=== PATIENT | male | born 1950 | race Caucasian/White ===

== ENCOUNTER → 2016-09-18 | Outpatient (CLI) | payer BC ==
[~2016-09-18] MED LIST: ASPCH81X PO; ATEN-173 PO; EZET10TA63 PO; FAMO20TA9 PO; LPT40 PO; LSN40 PO; NIAC500T11 PO; OMEG1CAP84 PO
== END | disposition home or self-care (01) ==
LOC: C.LABPBG 12:59
PROVIDERS: ATTEND Neuromusculoskeletal Medicine & OMM
DX: C61 Malignant neoplasm of prostate (principal); N52.9 Male erectile dysfunction, unspecified

== ENCOUNTER → 2017-03-10 | Outpatient (CLI) | payer BC ==
[2017-03-10 17:58] LABS: BLOOD UREA NITROGEN 19 mg/dl (7-18); CREATININE 0.97 mg/dl (0.60-1.40)
== END | disposition home or self-care (01) ==
LOC: C.LABPBG 10:29
PROVIDERS: ATTEND Ophthalmology
DX: Z01.818 Encounter for other preprocedural examination (principal)

== ENCOUNTER → 2017-04-21 | Outpatient (CLI) | payer BC ==
--- NOTE | 2017-04-22 05:53 | PAP/PSG TECHNICIAN REPORT ---
[facility] Lehr Cutter Polysomnogram Report Study name: None Report date: 04/22/2017 Study date: 04/21/2017 Referring Physician: DR. PALMER Name: WANDA AVILA Interpreting Physician: Paddy Upton M.D. Date of : 1950 Lehr Cutter: Jacky Wellington RPS. Sex: Male Age: 66 StudyType: PSG PAP Weight: 269 lbs Height: 66 years, Height 6' 0" BMI: 36.48 Medications: NONE LISTED Patient History PATIENT HAS HISTORY OF SNORING, FATIGUE AND DAYTIME SLEEPINESS. HE HAD A HOME SLEEP STUDY DONE AND WAS POSITIVE FOR LAKISHA WITH AN AHI OF 16. HE HIS HERE TODAY FOR A CPAP TITRATION. ESS = 11 RM 6 Parameters Monitored NPSG: E1-M2, E2-M1, Fp1-M2, Fp2-M1, F3-M2, F4-M2, F4-M1, C3-M2, C4-M2, C4-M1, O1-M2, O2-M2, O2-M1, T3-M2, T4-M1, P3-M2, P4-M1, CHIN1, CHIN2, HR, EKG, Legs, PFLOW, SNOR, FLOW, CFLOW, Tidal Volume, THOR, ABDO, SpO2, PLTH, CPRESS, ETCO2 Wave, ETCO2, pH Sleep Architecture Sleep Stages Time at Lights Off 9:30:38 PM STAGES Time (min.) TST (%) Time at Lights On 5:34:08 AM Wake 104.5 -- Total Recording Time (TRT) 484.00 min. N1 21.0 6 Total Sleep Period (TSP) 472.5 min. N2 246.5 65 Total Sleep Time (TST) 379.0min. N3 48.0 13 Awake Time 105.0 min. REM 63.5 17 Wake after Sleep Onset 94.0 min. Sleep Efficiency (SE) 78 % Sleep Onset Latency (SANDRITA) 10.5 min. Number of Stage 1 Shifts None Awakenings 24 Stage Changes 97 Number of REM periods 3 REM 63.5 17 REM Latency 189.5 min. NREM 315.5 83 Body Position Analysis Supine Right Left Side Prone Vertical Total Sleep Time (min.) 352.6 43.7 80.5 124.17 0.0 0.0 Total Sleep Time (%) 67% 12% 21% 33 0% N/A% Total Sleep Time REM (min.) 53.5 0.0 10.0 None 0.0 0.0 Total Sleep Time NREM (min.) 201.3 43.7 70.5 None 0.0 0.0 Intermittent Wake (min.) 97.8 0.9 5.8 None 0.0 0.0 Total Sleep Period (%) 72% None None None None None Arousals Myoclonus (PLM) * Events Count Index Events Count Index Spontaneous 37 6 Events Awake (PLMW) 53 30.4 Respiratory 0 0.0 Events Asleep w/ Arousal (PLMA) 14 2.2 PLM 12 2 Events Asleep w/o Arousal (PLMS) 350 55.4 Snoring 2 0 Total Asleep 364 57.6 Total 51 8 Total 417 52 Respiratory Analysis * CA OA MA CH H RERA Total Count 0 0 0 0 21 0 21 Index 0.0 0.0 0.0 0 3.3 0 3.3 Mean Duration 0.0 0.0 0.0 0.00 18.8 0.0 18.8 Longest Duration 0.0 0.0 0.0 0.00 0.0 0.0 34.3 Respiratory Event Summary Total Supine ~Supine Right Left Prone REM NREM Apneas Count 0 0 0 0 0 N/A 0 0 Index 0.0 0 0 0.0 0.0 N/A 0 0 Hypopneas (4% Desat) Count 21 16 5 1 4 N/A 16 5 Index 3.3 3.8 2 1.4 3.0 N/A 15.1 1.0 Apneas & All Hypopneas Count 21 16 5 1 4 N/A 16 5 Index 3.3 4 2 1 3 N/A 15.1 1.0 Respiratory Events (Quality Inspector+All Hyp+RERA) Count 21 16 5 1 4 N/A 16 5 Index 3.3 4 2 1.4 3.0 N/A 15.1 1.0 Respiratory Related Arousal Count 0 16 0 0 0 N/A 0 0 Index 0.0 0 0 0 0 N/A 0 0 Snoring Analysis Supine Right Left Prone REM NREM Total Snore duration 7.3 min Snores count 175 183 50 N/A 121 287 408 Snore mean duration 1.1 Sec Snores index 41 251 37 N/A 114.3 54.6 64.6 TST with snoring (%) 1.9% Desaturation Event Summary: Minimum %SpO2 Event Count Mean/Min/Max Duration(sec.) Desaturation Index % Time In Bed > 90 22 33.4 / 10.5 / 68.4 3.8 73.4 86 - 90 11 23.2 / 9.3 / 37.2 5.5 25.2 81 - 85 3 22.7 / 12.0 / 36.5 29.7 1.3 76 - 80 1 12.0 / 12.0 / 12.0 113.4 0.1 71 - 75 0 N/A 0.0 0.0 66 - 70 0 N/A 0.0 0.0 61 - 65 0 N/A 0.0 0.0 56 - 60 0 N/A 0.0 0.0 51 - 55 0 N/A 0.0 0.0 < 50 0 N/A 0.0 0.0 Total REM NREM Awake <50% 0.0 min. 0.0 min. 0.0 min. 0.0 min. 51 - 60% 0.0 min. 0.0 min. 0.0 min. 0.0 min. 61 - 70% 0.0 min. 0.0 min. 0.0 min. 0.0 min. 71 - 80% 0.5 min. 0.3 min. 0.0 min. 0.2 min. 81 - 90% 125.8 min. 39.4 min. 79.0 min. 7.4 min. 91 - 100% 347.8 min. 23.8 min. 234.6 min. 89.5 min. Average 91 89 91 93 Minimum SpO2 72 77 88 72 Desaturation Event Index 3.7 17.0 1.3 2.9 # Desat. Events below 89% 20 14 4 2 Time(%) with Saturation below 89% 5.2 4.8 0.2 0.2 Time(min.) with Saturation below 89% 24.8 22.9 1.2 0.7 Time (mins) REM (mins) NREM (mins) % of TST SpO2 Below 90% 22 16 N6 10.5 SpO2 Below 88% 10 0 0 4 Heart Rate Analysis Min (bpm) Max (bpm) Average (bpm) Awake 40 196 62 NREM 48 127 56 REM 47 67 56 Overall 47 127 56 Supplemental O2 Values Minimum O2 level: None Value Start Time End Time Lehr Cutter Comments Mr. Avila slept in the right, left and supine positions. No cardiac arrhythmia noted. Leg movements noted. No bruxism noted. CPAP was initiated at +4 CMH2O and up-titrated to an optimal level of +9 CMH2O, which nearly eliminated all respiratory events and snoring. A Resmed mirage fx nasal mask was used during titration Mr. Avila awoke to use the restroom 1 time during the night. Mr. Avila stated I did not sleep as well as I do when I am in my own bed. The final report will be interpreted and signed by a sleep physician. The completed physician report will then be placed in the patient medical record. Therapy Event: Therapy (cm H20) 4 6 8 9 Total Time at Pressure (min.) 213.3 178.3 62.1 29.7 TST at Pressure (min.) 169.3 125.8 58.1 25.7 # Periods 1 1 1 1 Sleep Onset (min.) 10.5 0.0 0.0 0.0 REM Onset (min.) 200.0 0.0 0.0 0.0 Sleep Efficiency % 79 70 93 86 Wakefulness (%) 20.6 29.4 6.4 13.4 Wakefulness (min.) 44.0 52.5 4.0 4.0 NREM 1 (%) 3.8 4.5 3.2 10.1 NREM 1 (min.) 8.0 8.0 2.0 3.0 NREM 2 (%) 53.7 48.5 40.2 68.9 NREM 2 (min.) 114.5 86.5 25.0 20.5 NREM 3 (%) 15.7 0.0 23.3 0.0 NREM 3 (min.) 33.5 0.0 14.5 0.0 REM (%) 6.2 17.6 26.8 7.5 REM (min.) 13.3 31.3 16.6 2.2 # Arousals 25 13 7 6 Arousal Index 8.9 6.2 7.2 14.0 # Snore 347 45 5 11 Snore Index 123.0 21.5 5.2 25.6 AHI 2.1 2.4 9.3 2.3 AHI Supine 2.4 2.4 40.6 2.8 AHI Non-Supine 1.7 N/A 3.7 0.0 NREM AHI 1.2 0.6 0.0 2.6 REM AHI 13.5 7.7 32.5 0.0 RDI 2.1 2.4 9.3 2.3 # Obstructive 0 0 0 0 # Central Ap 0 0 0 0 # Mixed 0 0 0 0 # Hypopneas 6 5 9 1 RERAS 0 0 0 0 Total Respiratory Events 6 5 9 1 Time Below SpO2 89.00% (min.) 13.1 8.0 2.9 0.0 Mean NREM SpO2 (%) 91 91 91 92 Mean REM SpO2 (%) 86 90 91 94 Mean Sleep SpO2 (%) 91 91 91 93 Min NREM SpO2 (%) 89 88 89 90 Min REM SpO2 (%) 81 77 83 92 Position Supine (min.) 98.3 125.8 8.9 21.8 Position Non-supine (min.) 71.0 0.0 49.3 3.9 LM Index Sleep 64.5 54.4 66.1 9.3 LM Index NREM 70.0 71.1 85.3 10.2 LM Index REM 0.0 3.8 18.0 0.0 Mean Heart Rate (bpm) 58 55 53 53 Min Heart Rate (bpm) 51 48 47 49
--- NOTE | 2017-04-24 17:58 | POLYSOMNOGRAPH REPORT ---
CLINICAL DATA: 66-year-old male with BMI of 36.[address] Connell for a CPAP titration study. He had a home sleep apnea test which showed moderate LAKISHA with an AHI of 16. SLEEP ARCHITECTURE: Total sleep period was 472.5 minutes. Total sleep time was 379 minutes divided between 315.5 minutes of non-REM sleep and 62.5 minutes of REM sleep. Sleep onset latency was 10.5 minutes. REM latency was 189.5 minutes. Sleep efficiency was 78%. Wake after sleep onset was 94 minutes. Sleep consisted of stage N1 6%, stage N2 65%, stage N3 13%, and REM 17%. AROUSAL DATA: 51 arousals were recorded for an index of 8 per hour. PLM DATA: Significantly elevated limb movements during sleep were noted. There were 364 limb movements during sleep noted for an index of 57.6 per hour with arousal index of 3.2 per hour. RESPIRATORY DATA: The AHI was 3.3. There were 21 hypopneic episodes with the mean duration of 18.8 seconds. OXIMETRY DATA: Nocturnal hypoxemia was seen. Oxygen lana was 77% during REM. The mean saturation was 91%. Time below 88% was 10 minutes. EKG: Heart rates ranged from 47 to 127 beats per minute. No arrhythmias were noted. HISTOLOGICAL ILLUSTRATOR'S COMMENTS AND TREATMENT SUMMARY: The patient slept in the right, left, and supine position. A ResMed Mirage FX nasal mask was used. CPAP was started and titrated up his final pressure setting of 9 cm of water pressure. At his final pressure setting, he slept for 25.7 minutes with an AHI of 2.3. IMPRESSION: Moderate sleep apnea/hypopnea corrected with CPAP 9 cm of water pressure ResMed Mirage FX nasal mask. RECOMMENDATIONS: The patient should be started on the above noted treatment regimen and seen back in followup within 90 days to document efficacy and compliance. KATHERIN
== END | disposition home or self-care (01) ==
LOC: C.NEUR 21:00
PROVIDERS: ATTEND Family Medicine
DX: G47.30 Sleep apnea, unspecified (principal)

== ENCOUNTER → 2017-06-30 | Outpatient (CLI) | payer BC ==
[~2017-06-30] VITALS: Ht 182.9 cm; Wt 274.3 kg
[2017-06-30 15:39] VITALS: BP 155/71; PULSE 71; Ht 182.9 cm; Wt 274.3 kg
== END | disposition home or self-care (01) ==
LOC: C.NEUR 14:48
PROVIDERS: ATTEND Internal Medicine Pulmonary Disease
DX: G47.33 Obstructive sleep apnea (adult) (pediatric) (principal); G47.34 Idiopathic sleep related nonobstructive alveolar hypoventilation; H47.012 Ischemic optic neuropathy, left eye

== ENCOUNTER 2018-09-10 07:15 | Inpatient (IN) ==
--- NOTE | 2018-08-09 15:15 | PAT Medication Instructions ---
Medication Instructions Date of Service August 09, 2018 Home Medications Vitamin D 1 tab PO QPM aspirin [Aspir-81] 81 mg PO QAM atenolol 25 mg PO QAM atorvastatin 40 mg PO QAM famotidine 20 mg PO HS lisinopril-hydrochlorothiazide 1 tab PO BID niacin 500 mg PO BID omega 0-bxi-vbb-fish oil [Fish Oil] 1 cap PO BID vitamins A,C,F-ghfi-rzhgha 1 tab PO BID STOP taking 2 weeks before surgery (or as soon as possible if surgery is within 2 weeks) omega 3-vzj-soy-fish oil [Fish Oil] 1 cap PO BID Preservision AREDS vitamins A,C,G-ytpv-kjagjp 1 tab PO BID STOP taking 24 hours before surgery niacin 500 mg PO BID DO NOT take the morning of surgery lisinopril-hydrochlorothiazide 1 tab PO BID Take morning of surgery With a small sip of water, OTHERWISE NOTHING TO EAT OR DRINK AFTER MIDNIGHT: atenolol 25 mg PO QAM atorvastatin 40 mg PO QAM Take evening before surgery Vitamin D 1 tab PO QPM famotidine 20 mg PO HS lisinopril-hydrochlorothiazide 1 tab PO BID Other Notes If you have any questions please call us at [phone] or [phone] or [phone] or [phone]
--- NOTE | 2018-08-10 10:37 | Anesthesiology Consultation ---
Date of Service August 10, 2018 Assessment & Plan (1) Encounter for pre-operative examination: - Preop EKG reviewed by cardio; received response: 08/17/18: "Okay to clear." - Check BSG AM DOS *Okay to continue ASA perioperatively per surgeon* Chart Review Chart Review: Acceptable Risk for Surgery and Patient seen in Pre Admission Testing Teaching & Discussion Pre-Anesthesia Teaching/Discussion Notes: Instructed NPO after midnight before surgery,except medications with 15 cc of water. Medication instructions provided according to the PAT guidelines. History Surgery Operation Date: 09/10/18 10:40 Proposed Procedures p Left Total Knee Replacement - Leland Gibbs, Height/Weight Height: 6 ft Weight: 119.4 kg Allergies Allergy/AdvReac Type Severity Reaction Status Date / Time No Known Allergies Allergy Unknown ` Verified 08/03/18 08:38 Medications Home Medications Medication Instructions Recorded Confirmed Last Taken Vitamin D 1 tab PO QPM 08/03/18 08/03/18 Unknown aspirin [Aspir-81] 81 mg PO QAM 08/03/18 08/03/18 Unknown atenolol 25 mg PO QAM 08/03/18 08/03/18 Unknown atorvastatin 40 mg PO QAM 08/03/18 08/03/18 Unknown famotidine 20 mg PO HS 08/03/18 08/03/18 Unknown lisinopril-hydrochlorothiazide 1 tab PO BID 08/03/18 08/03/18 Unknown niacin 500 mg PO BID 08/03/18 08/03/18 Unknown omega 9-bcd-poz-fish oil [Fish Oil] 1 cap PO BID 08/03/18 08/03/18 Unknown vitamins A,C,H-owlt-hjabpa 1 tab PO BID 08/03/18 08/03/18 Unknown [PreserVision AREDS] Past Medical History Medical History CAD (coronary artery disease) NON-OBSTRUCTIVE Bradycardia CHRONIC; ASYMPTOMATIC ON BETA FARSHAD Cancer PROSTATE S/P PROSTECTOMY; BCC S/P SCALP EXCISION Carotid artery disease "STABLE" PER CARDIO Chronic back pain GERD (gastroesophageal reflux disease) Hyperlipidemia Hypertension Obesity Osteoarthritis Sleep apnea CPAP Exercise / Class Metabolic Activity II 4-5 Yardwork/Stairs/Walk up hill Past Family History Family History Father Family history of diabetes mellitus Family history of esophageal cancer Son Family history of esophageal cancer Past Surgical History Surgical History H/O prostatectomy History of cardiac cath 10+ YEARS AGO= NO STENTS History of partial thyroidectomy HX BENIGN NODULE History of total knee replacement RIGHT Past Anesthesia History No Hx of Anesthesia Complications and No Family Hx of Anesthesia Complications History of PONV No Hx of PONV and Hx of Motion Sickness Social History Smoking Status: Former smoker Do You Dip or Chew Tobacco: No Smoking End Date: QUIT 35 YEARS AGO Hx Alcohol Use: Yes Alcohol type: beer alcohol intake frequency: a few times a month Hx Substance Use: No substance use type: does not use Review of Systems Patient denies chest pain, shortness of breath, dyspnea on exertion, cough, wheezing, palpitations. Physical Exam Vital Signs VITALS BP 128/82 P 50 TEMP 98.4 SP02 97%RA RESP 16 PHYSICAL Full neck and c-spine range of motion. Full TMJ range of motion. TMD 3 finger breaths Mallampati Score 2 Dentition: several missing sides/molars Lungs: clear throughout to auscultation Cardiac: regular rate and rhythm, no murmurs noted Spine: normal Carotid arteries: negative bruit Extremities: no edema Thick neck Testing Electrocardiogram Date: 08/10/[address] elevation, consider early repolarization, pericarditis, or injury. No significant change compared to 04/30/15 per cardio [patient denies cardiopulmonary complaints/limitations at PAT visit 08/10/18]. Chest X-Ray Date: 08/10/18 Findings: + NAD Echocardiogram Date: 11/20/17 Mild to moderate MR. Mild physiologic TR/AR. Moderate cLVH. LVEF 53%. Stress Test Date: 10/23/17 Type: nuclear "Normal" myocardial perfusion scan. No diagnostic evidence of myocardial is chemia. EF 65%. Other Testing Carotid duplex U/S: 11/20/17: JANET/LICA stenosis 1-39%. Nonobstructive plaquing of b/l common carotid. B/L antegrade vertebral arteries. Compared to the carotid ultrasound done in 2017, overall little progressive change. Laboratory Results 08/10/18 11:15 PT 11.3 Seconds (9.0-12.0) 08/10/18 11:15 INR 1.1 (0.9-1.1) 08/10/18 11:15 APTT 29.6 Seconds (21.0-31.0) 08/10/18 11:15 7.7 % (4.5-5.6) H 08/10/18 11:15 Blood Type O Positive 08/10/18 11:15 Antibody Screen NEGATIVE 08/10/18 11:15 07/15/18 SODIUM 135 POTASSIUM 4.6 CHLORIDE 103 CO2 30 BUN 19 CREATININE 1.27 GLUCOSE 139 Due to header error, following labs header labels were missin08/10/18 HGBA1C 7.7% (Surgeon made aware of elevated hgba1c*)
--- NOTE | 2018-08-10 11:47 | XRay Report ---
XR chest Pre-admission PA/Lat CLINICAL HISTORY: Preoperative chest COMPARISON STUDY: 04/29/2015 FINDINGS: The cardiac and mediastinal contours are normal. There is no evidence of focal pulmonary co nsolidation. There is no evidence of failure. No pleural effusions are visualized.[ IMPRESSION: No active disease in the chest. Electronically signed by: Demetrius Brambila M.D. 08/10/2018 11:46 AM
[2018-08-10 12:39] LABS: Basophils # (auto) 0.05 K/uL (0-0.2); Basophils % (auto) 0.9 %; Eosinophils % (auto) 1.8 %; Hematocrit (blood only) 41.3 % (42-52); Hemoglobin 14.2 g/dL (14.0-18.0); Immature Granulocytes # (auto) 0.02 K/uL (0.00-0.02); Immature Granulocytes % (auto) 0.4 %; Lymphocytes # (auto) 1.49 K/uL (1.2-3.4); Lymphocytes % (auto) 26.1 %; Mean Corpuscular Hgb Conc 34.4 g/dL (32-36); Mean Corpuscular Volume 84.1 fL (80-100); Mean Platelet Volume 10.5 fL (7.4-10.4); Monocytes # (auto) 0.55 K/uL (0.11-0.59); Monocytes % (auto) 9.6 %; Neutrophils % (auto) 61.2 %; Platelet Count 244 K/uL (130-400); RDW Coefficient of Variation 13.8 % (11.5-14.5); RDW Standard Deviation 42.1 fL (36.4-46.3); Red Blood Count 4.91 M/uL (4.7-6.1); White Blood Count 5.71 K/uL (4.8-10.8)
[2018-08-10 12:55] LABS: INR 1.1 (0.9-1.1); Partial Thromboplastin Ratio 1.1; Partial Thromboplastin Time 29.6 Seconds (21.0-31.0); Prothrombin Time 11.3 Seconds (9.0-12.0)
[2018-08-10 13:01] LABS: Estimated Average Glucose 174 mg/dl; Hemoglobin A1C 7.7 % (4.5-5.6)
--- NOTE | 2018-09-07 15:32 | History & Physical Report ---
Date of Service September 07, 2018 Assessment & Plan (1) Osteoarthritis of left knee: We will proceed with a left total knee arthroplasty. Postoperatively he will be started on aspirin for DVT prophylaxis. He will be kept overnight in the hospital for postoperative medical management. He plans to use energy physical therapy upon discharge. Present on Admission?: Yes History of Present Illness Chief Complaint: Primary osteoarthritis of the left knee Primary Care Provider: Ashlie Connell DO Wm is a pleasant 68-year-old male who is been dealing with chronic increasing left knee pain. X-rays and clinical examination were diagnostic for primary osteoarthritis of the left knee. After failing conservative treatment, he has elected proceed with a left total knee arthroplasty. He does have a history of a right total knee arthroplasty done in [place] in 2017. Allergies Allergy/AdvReac Type Severity Reaction Status Date / Time No Known Allergies Allergy Unknown ` Verified 08/03/18 08:38 Zocor TABS Allergy Uncoded 09/06/18 14:57 Home Medications Home Medications Medication Instructions Recorded Confirmed Type Vitamin D 1 tab PO QPM 08/03/18 08/03/18 History aspirin [Aspir-81] 81 mg PO QAM 08/03/18 08/03/18 History atorvastatin 40 mg PO QAM 08/03/18 08/03/18 History famotidine 20 mg PO HS 08/03/18 08/03/18 History lisinopril-hydrochlorothiazide 1 tab PO BID 08/03/18 08/03/18 History niacin 500 mg PO BID 08/03/18 08/03/18 History omega 1-smk-jsn-fish oil [Fish Oil] 1 cap PO BID 08/03/18 08/03/18 History vitamins A,C,E-iryi-tfqlre 1 tab PO BID 08/03/18 08/03/18 History [PreserVision AREDS] atenolol 25 mg tablet 25 mg PO QAM #30 tab 09/06/18 Rx cholecalciferol (vitamin D3) 2,000 1 PO .TAKE 1 CAPSULE Daily #90 cap 09/06/18 09/06/18 History unit capsule niacin ER 500 mg capsule,extended PO .TAKE 1 CAPSULE 2 angelica cap 09/06/18 09/06/18 History release Past Med/Surg History Medical History CAD (coronary artery disease) NON-OBSTRUCTIVE Bradycardia CHRONIC; ASYMPTOMATIC ON BETA FARSHAD Cancer PROSTATE S/P PROSTECTOMY; BCC S/P SCALP EXCISION Carotid artery disease "STABLE" PER CARDIO Chronic back pain GERD (gastroesophageal reflux disease) Hyperlipidemia Hypertension Obesity Osteoarthritis Sleep apnea CPAP Surgical History H/O prostatectomy History of cardiac cath 10+ YEARS AGO= NO STENTS History of partial thyroidectomy HX BENIGN NODULE History of total knee replacement RIGHT Family History Father Family history of diabetes mellitus Family history of esophageal cancer Son Family history of esophageal cancer Social History Preferred Language: Macedonian Communication Ability: Effective Rn Urgent Care Required: No Beliefs That Will Affect Care: None Current Living Situation: Spouse Other Information That Helps Us Care for You: No Feels Safe at Home: Yes Safety Concerns: Feels Safe At This Time Smoking Status: Former smoker Do You Dip or Chew Tobacco: No Smoking End Date: QUIT 35 YEARS AGO Second Hand Exposure: No Hx Alcohol Use: Yes Alcohol type: beer Hx Substance Use: No Review of Systems All systems reviewed & are unremarkable except as noted in HPI & below Physical Exam Constitutional: WD/WN, vitals as above Eyes: PERRL, conjunctivae normal, anicteric sclerae ENMT: external ear and nose normal, oropharynx normal Neck: trachea midline, no thyromegaly Respiratory: normal respiratory effort Cardiovascular: RRR, no murmur, no edema Gastrointestinal (Abdomen): normal bowel sounds, soft, nontender, no hepatosplenomegaly Musculoskeletal: On physical examination of the left knee there is a trace effusion. There is near full range of motion and no evidence of instability. There is significant tenderness palpation along the medial and lateral joint lines and over the distal femoral condyles. Psychiatric: A+Ox3, euthymic affect Results & Data Diagnostic Findings Radiographs of the left knee demonstrate advanced osteoarthritis with joint space narrowing osteophyte formation and adzh-ki-fwul articulation.
[~2018-09-10 07:15] MED LIST changes: +ACETAMINOPHEN 500 MG TAB PO SCH; -ASPCH81X PO; -ATEN-173 PO; +BUPIVACAINE 0.5 % 5 MG/1 ML PF 10ML VIAL ONE; +CEFAZOLIN 2000MG 2,000 MG/15 ML SYR IV SCH; -EZET10TA63 PO; -FAMO20TA9 PO; +FAMOTIDINE 20 MG TAB PO SCH; +GABAPENTIN 300 MG PO SCH; -LPT40 PO; +LR 500ML BOLUS, THEN 15ML/HR IV SCH; +LR 60ML/HR IV SCH; -LSN40 PO; -NIAC500T11 PO; -OMEG1CAP84 PO; +ROPIVACAINE 0.5% 5 MG/ML 30 ML VIAL ONE; +ROPIVACAINE 0.5% HCL/PF 150 MG, BUPIVACAINE 0.5% MPF 30 ML, EPINEPHrine 30MG/30ML (OR U... INFIL SCH; +TRANEXAMIC ACID 1,000 MG **IV Intra-op IV SCH; +TRANEXAMIC ACID 1,000 MG **IV Pre-op IV SCH
[2018-09-10] MEDS ORDERED: PROPOFOL IV EMULSION 10 MG/ML 20 ML VIAL IV ONE ×2 (08:15→10:59)
[2018-09-10] MEDS ORDERED: MIDAZOLAM HCL 1 MG/ML 2ML VIAL ONE ×2 (08:15→10:33)
[2018-09-10] MEDS ORDERED: LIDOCAINE HCL 2% 2 ML VIAL/AMP(20MG/ML) INFIL ONE (08:15)
--- NOTE | 2018-09-10 08:29 | History & Physical Bridge Note ---
Date of Service September 10, 2018 History & Physical Bridge Note I have examined the patient, reviewed the History & Physical and in the interval since the performance of the History & Physical I have noted the following changes of clinical significance: no changes noted
[2018-09-10] MEDS ORDERED: ORTHO JOINT ANESTHETIC ONE (09:31)
[2018-09-10] MEDS ORDERED: ePHEDrine sulfate 50 MG/ML SYR ONE (10:19)
--- NOTE | 2018-09-10 11:16 | Operative Report ---
Post Operative Report Pre & Post Diagnosis Operation Date: 09/10/18 10:00 Pre-Op Diagnosis: Left Knee Degenerative Joint Disease Post-Op Diagnosis: Left Knee Degenerative Joint Disease Procedure Operation Date: 09/10/18 10:00 Actual Procedures p Left Total Knee Replacement(Left) - Leland Gibbs DO Surgeon Leland Gibbs DO Mallet And Die Cutter Leland Zelaya PAC Estimated Blood Loss 20 Findings Consistent with Post-Op Diagnosis Specimens Left femoral and tibial bone Complications none Disposition Disposition: Recovery Room Indications Wm torres a pleasant 68-year-old male presented my office with chronic increasing left knee pain. X-rays and clinical examination have been diagnostic for primary osteoarthritis the left knee. After failing conservative treatment, he elected to undergo a left total knee arthroplasty. Description of Procedure Implants used: I used a Biomet Vanguard total knee arthroplasty system with a size 72.5 femur, 75 tibia, 34 patella, and a size 10 PS polyethylene bearing. All components wer e cemented in place with Palacos G cement. The patient arrived [facility] for the above procedure. There were seen in the preoperative holding area and the operative extremity was identified and signed. There were given a preoperative antibiotic, a spinal anesthetic and an adductor nerve block. There were taken back to the operating room and laid on the table in supine position. There were given basic sedation. The operative knee was then prepped and draped in sterile fashion. A timeout was done, and the patient and the operative extremity was properly identified. A midline incision was made directly over the patella. Dissection was taken down to the extensor mechanism. A subvastus arthrotomy was used. The medial retinaculum was released and the fat pad was mostly left intact. The knee was flexed and the ACL, PCL, and meniscus were removed. A drill was sent down the center of the femoral canal followed by an intramedullary min. Off that min a distal femoral cutting block was placed. 9 mm was resected off the distal femur at 5 of valgus. A posterior referencing AP sizing guide was then placed on the distal femur. The femur measured to be a size 72.5. 2 drill holes were placed in 3 of external rotation. A 4-in-1 cutting block was then impacted into place. Anterior posterior and chamfer cuts were then made. The posterior stabilizing box guide was then impacted into place and the box was resected for the posterior stabilizing component. The proximal tibia was then exposed. A drill was sent down the center of the tibial canal followed by an intramedullary min. Off that min a proximal tibial resection guide was placed. The proximal tibia was then resected. The tibia measured to be a size 75. The tibial plate was then placed in the appropriate rotation and the tibia was punched. The posterior aspect of the knee was then opened up and any additional meniscus fragments and osteophytes were removed. Trial components were then placed. I used a size 10 PS polyethylene insert. The knee was brought through a full range of motion and felt to be stable. The patella was then everted and 8 mm was resected off the posterior aspect of the patella. The patella measured to be a size 34. 3 peg holes were then drilled. A trial patella was placed. The knee was once again brought through a full range of motion and felt to be stable. Trial components were then removed. The surrounding soft tissues were injected with 100 cc of an orthopedic pain control cocktail. All components were then cemented into place with Palacos G cement. The final polyethylene insert was then snapped into place and the anterior bar was locked. Once cement was dry the tourniquet was deflated. Hemostasis was obtained. A dilute betadyne lav age was then done for 3 minutes. The joint was then irrigated with normal saline solution. The subvastus arthrotomy was then closed with #1 Vicryl suture. The skin was closed with 2-0 Vicryl, 3-0V lock suture, and kate. A soft compressive dressing was placed. The patient was then transferred to a hospital bed and taken to the postanesthesia care unit in stable condition. They tolerated the procedure well. I attest to the content of the Intraoperative Record and any orders documented therein. Any exceptions are noted below.
[2018-09-10] MEDS ORDERED: ePHEDrine sulfate 50 MG/ML AMP IV PRN (12:18)
[2018-09-10] MEDS ORDERED: ATROPINE SULFATE 0.1 MG/ML 10ML SYR IV PRN (12:18)
--- NOTE | 2018-09-10 12:18 | Anesthesiology Progress Note ---
Date of Service September 10, 2018 Anesthesia Post Procedure Vital Signs Vital Signs: Temp Pulse Resp BP Pulse Ox 09/10/18 12:12 59 L 16 109/67 100 09/10/18 12:00 36.4 C L 58 L 15 115/67 98 09/10/18 11:50 59 L 14 111/66 100 09/10/18 11:43 36.8 C 66 18 91/73 L 100 09/10/18 07:46 37.3 C 50 L 20 126/71 97 Pain Intensity Left Knee: Pain Intensity: 5 Transfer of Care Handoff Completed per policy Notes Mental Status: alert / awake / arousable Patient Amnestic to Procedure: Yes Nausea / Vomiting: adequately controlled Pain: adequately controlled Airway Patency, RR, SpO2: stable & adequate BP & HR: stable & adequate Hydration State: stable & adequate Anesthetic Complications: no major complications apparent
--- NOTE | 2018-09-10 12:20 | XRay Report ---
LEFT KNEE 2 VIEWS History: Left total knee arthroplasty. Degenerative arthritis. Postop. FINDINGS: The patient is status post a left total knee arthroplasty. The hardware is intact. No fract ure or dislocation. Skin kate are in place. IMPRESSION: Left total knee arthroplasty. No evidence for hardware complication. Electronically signed by: Chad Medina M.D. 09/10/2018 12:18 PM
[2018-09-10] MEDS ORDERED: ONDANSETRON INJ 2 MG/ML 2 ML VIAL IV PRN (12:32)
[2018-09-10] MEDS ORDERED: OXYCODONE HCL IR 5 MG TAB (IMMEDIATE RELEASE) PO PRN (12:32)
[2018-09-10] MEDS ORDERED: BISACODYL 10 MG SUPP PR PRN (12:32)
[2018-09-10] MEDS ORDERED: NALOXONE HCL 0.4 MG/1 ML VIAL/CARP IV PRN (12:32)
[2018-09-10] MEDS ORDERED: METOCLOPRAMIDE HCL INJ 5 MG/ML 2 ML VIAL IV PRN (12:32)
[2018-09-10] MEDS ORDERED: MAGNESIUM HYDROXIDE SUSP 30 ML UDC PO PRN (12:32)
[2018-09-10] MEDS ORDERED: HYDROmorphone INJ 0.5 MG/0.5 ML SYR IV PRN (12:32)
[2018-09-10] MEDS: KETOROLAC TROMETHAMINE 15 MG/ML VIAL IV SCH ×3 (13:08→23:36)
[2018-09-10] MEDS: SODIUM CHLORIDE 0.9% 1000ML 1,000 ML IV SCH ×2 (13:08→22:54)
[2018-09-10] MEDS: ACETAMINOPHEN 500 MG TAB PO SCH ×2 (13:59→20:46)
[2018-09-10] MEDS: LISINOPRIL/HCTZ 20/12.5MG 1 TAB TAB PO SCH (17:04)
[2018-09-10] MEDS: CEFAZOLIN 2000MG 2,000 MG/15 ML SYR IV SCH (17:04)
[2018-09-10] MEDS ORDERED: PHARMACY GLYCEMIC MGMT CONSULT PRN (17:47)
[2018-09-10] MEDS ORDERED: GLUCOSE 40% GEL 15 GM TUBE PO PRN (18:00)
[2018-09-10] MEDS ORDERED: GLUCOSE 10 TABS/TUBE PO PRN (18:00)
[2018-09-10] MEDS ORDERED: INSULIN GLARGINE SOLOSTAR 100 UNITS/ML 3 ML PEN SC ONE (18:00)
[2018-09-10] MEDS ORDERED: DEXTROSE 50% 50 ML SYRINGE IV PRN (18:00)
[2018-09-10] MEDS ORDERED: CARBOHYDRATES FOR HYPOGLYCEMIA PO PRN (18:00)
[2018-09-10] MEDS ORDERED: GLUCAGON FOR INJ 1 MG VIAL IM PRN (18:00)
[2018-09-10] MEDS: INSULIN ASPART 100 UNITS/ML 3 ML PEN SC SCH ×2 (18:34→20:46)
[2018-09-10] MEDS: DOCUSATE SODIUM 100 MG CAP PO SCH (20:11)
[2018-09-10] MEDS: NIACIN 500 MG TAB PO SCH (20:11)
[2018-09-10] MEDS: ASPIRIN 81 MG ECTAB PO SCH (20:12)
[2018-09-10] MEDS ORDERED: SENNA 8.6 MG TAB PO SCH (21:00)
[2018-09-10] MEDS ORDERED: FAMOTIDINE 20 MG TAB PO SCH (21:00)
[2018-09-11] MEDS: CEFAZOLIN 2000MG 2,000 MG/15 ML SYR IV SCH (02:23)
[2018-09-11] MEDS: KETOROLAC TROMETHAMINE 15 MG/ML VIAL IV SCH ×2 (05:18→11:38)
[2018-09-11] MEDS: ACETAMINOPHEN 500 MG TAB PO SCH (05:18)
[2018-09-11 06:05] LABS: Hematocrit (blood only) 33.4 % (42-52); Hemoglobin 11.4 g/dL (14.0-18.0); Mean Corpuscular Hgb Conc 34.1 g/dL (32-36); Mean Corpuscular Volume 84.1 fL (80-100); Mean Platelet Volume 9.5 fL (7.4-10.4); Platelet Count 182 K/uL (130-400); RDW Coefficient of Variation 13.4 % (11.5-14.5); RDW Standard Deviation 40.2 fL (36.4-46.3); Red Blood Count 3.97 M/uL (4.7-6.1); White Blood Count 8.86 K/uL (4.8-10.8)
[2018-09-11 06:37] LABS: BUN Creatinine Ratio 20.3 (10-20); Calcium 8.4 mg/dl (8.5-10.1); Creatinine Clr Calc Pharmacy 65.2 ml/min; Est GFR (African American) 56.3; Est GFR (Non-African American) 48.6; Potassium 4.5 mmol/L (3.5-5.1)
--- NOTE | 2018-09-11 08:22 | Orthopedic Progress Note ---
Date of Service September 11, 2018 Assessment & Plan (1) Osteoarthritis of left knee: Overall is doing very well. He is ambulating around the hallways already. He has very little pain in the left knee. He is on aspirin for DVT prophylaxis. He will be seen by physical therapy this morning for ambulation and range of motion exercises. The nursing staff can change his dressing. He can be discharged home later this morning. He will follow-up with orthopedics in 2 weeks. Present on Admission?: Yes Subjective Wm was seen and examined at bedside this morning. Overall is doing very well. He is having very little pain in his left knee. He is happy with his progress to this point. He is already ambulated around the nurses station. He has no complaints. Physical Exam Musculoskeletal: On physical examination of the left knee, the dressing is clean and dry. He is active dorsiflexion and plantarflexion of his left ankle. Sensations intact throughout. Results & Data Vital Signs (Past 12 Hours) Vital Signs Temp Pulse Resp BP Pulse Ox 09/11/18 07:15 36.6 C 57 L 16 100/60 96 09/11/18 03:07 36.5 C 57 L 16 107/66 98 09/10/18 23:37 36.5 C 61 16 104/65 94 Laboratory Results H & H 08/10/18 09/11/18 Range/Units 11:15 05:52 Hgb 14.2 11.4 L (14.0-18.0) g/dL Hct 41.3 L 33.4 L (42-52) % Coagulation 08/10/18 Range/Units 11:15 INR 1.1 (0.9-1.1) Diagnostic Findings Postoperative x-rays of the left knee show the prosthesis to be in anatomic alignment without any evidence of fracture, dislocation, or loosening.
--- NOTE | 2018-09-11 08:26 | Discharge Summary ---
Date of Service September 11, 2018 Admission HPI Per Admitting Provider Wm is a pleasant 68-year-old male who is been dealing with chronic increasing left knee pain. X-rays and clinical examination were diagnostic for primary osteoarthritis of the left knee. After failing conservative treatment, he has elected proceed with a left total knee arthroplasty. He does have a history of a right total knee arthroplasty done in [place] in 2017. Specialty Data Orthopedic H & H 08/10/18 09/11/18 Range/Units 11:15 05:52 Hgb 14.2 11.4 L (14.0-18.0) g/dL Hct 41.3 L 33.4 L (42-52) % Coagulation 08/10/18 Range/Units 11:15 INR 1.1 (0.9-1.1) Discharge Data Consultations 09/10/18 12:32 Consult Case Management - Discharge Planning Routine Procedures Performed Operation Date: 09/10/18 10:00 Actual Procedures p Left Total Knee Replacement(Left) - Leland Gibbs DO Hospital Course (1) Osteoarthritis of left knee: On September 10, 2018 and Wm arrived at [facility] and underwent a left total knee arthroplasty without complication. He had a spinal anesthetic and a left adductor nerve block. Postoperatively he was discharged to general orthopedic floors and started on aspirin for DVT prophylaxis. Postoperatively his hospital course was uneventful. On postop day #1 his H&H was stable and his pain was well controlled. He was ambulating well with physical therapy. He was then discharged home with [facility]. He will follow-up with orthopedics in 2 weeks. Discharge Instructions Home Medications Medication Instructions Recorded Confirmed aspirin [Aspir-81] 81 mg PO QAM 08/03/18 09/10/18 atorvastatin 40 mg PO QAM 08/03/18 09/10/18 famotidine 20 mg PO HS 08/03/18 09/10/18 lisinopril-hydrochlorothiazide 1 tab PO BID 08/03/18 09/10/18 niacin 500 mg PO BID 08/03/18 09/10/18 omega 6-pph-ovh-fish oil [Fish Oil] 1 cap PO BID 08/03/18 09/10/18 vitamins A,C,O-ozxe-lulwxx 1 tab PO BID 08/03/18 09/10/18 [PreserVision AREDS] cholecalciferol (vitamin D3) 2,000 2,000 unit PO .TAKE 1 CAPSULE 09/06/18 09/10/18 unit capsule Daily #90 cap Previous Rx's Medication Instructions Recorded atenolol 25 mg tablet 25 mg PO QAM #30 tab 09/06/18 aspirin [Ecotrin Low Strength] 81 mg PO BID #84 tab 09/11/18 oxycodone 5 - 10 mg PO Q4H PRN #40 tab 09/11/18
[2018-09-11] MEDS ORDERED: INSULIN GLARGINE SOLOSTAR 100 UNITS/ML 3 ML PEN SC SCH (09:00)
[2018-09-11] MEDS ORDERED: ATORVASTATIN 40 MG TAB PO SCH (09:00)
[2018-09-11] MEDS ORDERED: ATENOLOL 25 MG TABLET PO SCH (09:00)
[2018-09-11] MEDS ORDERED: MULTIVITAMIN TAB PO SCH (09:00)
[2018-09-11] MEDS: DOCUSATE SODIUM 100 MG CAP PO SCH (09:03)
[2018-09-11] MEDS: ASPIRIN 81 MG ECTAB PO SCH (09:03)
[2018-09-11] MEDS: LISINOPRIL/HCTZ 20/12.5MG 1 TAB TAB PO SCH (09:04)
[2018-09-11] MEDS: NIACIN 500 MG TAB PO SCH (09:04)
[2018-09-11] MEDS: INSULIN ASPART 100 UNITS/ML 3 ML PEN SC SCH (09:07)
--- NOTE | 2018-09-11 10:38 | Pharmacy Report ---
PHA: Glycemic Control AP - Date of Service September 11, 2018 - Assessment & Plan Mr Avila is a 68 y/o M with a PMH of non-diagnosed T2DM. HbA1C = 7.7%. Yesterday, Patient started on 0.2 unit/kg of Lantus plus weight-based stress of 2 Novolog. This appears to have adequate controlled the patient. One blood sugar over 200 mg/dL HOWEVER the patient's Lantus dose was given late secondary to late surgery. The patient is currently receiving 47 units of insulin per day. BSGs ranging 163 - 247 mg/dl yesterday. Fasting today is 156 mg/dL. * Basal insulin: Lantus 25 units every 24 hours * Correctional Insulin: Novolog Correction per scale ACHS Goal Range: Low 110 mg/dL - High 140 mg/dL Correction Factor: 20 mg/dL/unit * Prandial insulin: Per carb ratio of 1 unit per 7 grams CHO consumed BSGs continue to improve, no changes needed to inpatient regimen at this time. Pharmacy will continue to monitor patient daily and write orders per formerly [facility] inpatient glycemic control protocol. Thanks. DISCHARGE RECOMMENDATIONS * patient's HbA1C indicates that metformin xr 500 mg po bid would be reasonable to start. titrate upwards to a goal dose of 1000 mg po bid with meals.
--- NOTE | 2018-09-13 10:05 | Coding Query ---
TREATMENT RENDERED WITHOUT A DIAGNOSIS To promote full compliance with coding requirements relating to patient care, physician participation is requested in all cases of continuous improvement engineer uncertainty. Please assist us with the question(s) below: Coding Question: The patient is receiving 09/11/18 PHARMACY CONSULT WITH INSULIN ADMINISTRATION, as noted in the PHARMACY REPORT of the record. Please document the diagnosis that is being addressed by the medication/treatment. Provider Response: Hyperglycemia Thank you Orly PANDEY
== END 2018-09-11 12:10 | disposition home health service (06) | DRG 470 ==
LOC: ASU 07:15 → 3E 11:46